=== PATIENT | female | born 1980 | race Caucasian/White ===

== ENCOUNTER 2017-11-27 18:50 | Emergency (ER) | payer OTHER, SELFPAY ==
--- NOTE | 2017-11-28 00:06 | OBHP ---
Datetime: 11/27/2017 20:00 IP Adm Impression: , intrauterine IP Admit Plan: Observation/Evaluation; Discharge home Admit Comment, IP Provider: 37 YO EGA 22.2 presents requesting for a second opinion. She sh baldo that on recent visit with PNC in [place], her fetus was found to have several abnormalities . She denies current VB, LOF, CTX. She shares of sensing movement. [facility]NC: [facility]: 1999 at 39 weeks in [place]; 2013 emergent c/s at 36 wks 2/2 decreased tones; gyne hx: denies sti medhx: thyroidectomy fam hx: ovarian, breast cancer Surg: thryroidectomy 2007; c/s 2013 soc: denies: smoking, alcohol, illicit drugs rx: levothyroxine, pnv, tylenol Allergies: MOTRIN: palpitations General: pleasant, in no acute distress HEENT: normocephalic, PERRLA; AAOx3 Heart: no murmurs, regular rate and rhythm, S1, S2 normal. Lungs: clear to auscultation bilaterally, no wheezing Abdomen: nontender, gravid CVA: negative Lower extremities: negative for pitting edema 37 YO EGA 22.2 presents requesting for a second opinion 2/2 learing of abnormality. -Shared with patient options for setting up an appointment with us in the clinic for further evalu ation and possible referral to high risk -Pt will continue to follow up with current pnc tomorrow to discuss options. -pt given ob er precautions -also spoke to today's visit and recommendations case dw Dr. Too Curran MD PGY1 Seen and agrees with the above. Pelvic Type - PN: Not Done Extremities - PN: Normal Abdomen - PN: Normal Back - PN: Normal Breast - PN: Not Done Lungs - PN: Normal Heart - PN: Normal Thyroid - PN: Not Done Neurologic - PN: Normal HEENT - PN: Normal General - PN: Normal EGA AdmitDate IP: 22.2 Vital Signs Provider: Reviewed; Within Normal Limits IP Chief Complaint: evaluation Genitourinary Exam: Normal DTRs - PN: Not Done
[2017-11-28 00:44] VITALS: BP 104/67; PULSE 72
== END 2017-11-27 20:15 | disposition home or self-care (01) ==
LOC: H.EROB2 18:50
DX: O36.5921 Maternal care for other known or suspected poor fetal growth, second trimester, fetus 1 (principal); Z3A.22 22 weeks gestation of pregnancy